=== PATIENT | female | born 1990 | race Caucasian/White ===

== ENCOUNTER 2017-10-20 14:39 | Emergency (ER) | payer SELFPAY ==
[~2017-10-20] VITALS: Ht 165.1 cm; Wt 97.5 kg
[2017-10-20 14:47] VITALS: BP 116/70; PULSE 95; TEMP 97.1
[2017-10-20] MEDS ORDERED: MEDROL 4MG DOSPA4 MG PO (15:44)
== END 2017-10-20 15:50 | disposition home or self-care (01) ==
LOC: COL.ER 14:39
DX: H69.92 Unspecified Eustachian tube disorder, left ear (principal)